=== PATIENT | male | born 1965 | race Two or more races ===

== ENCOUNTER 2020-03-25 20:25 | Emergency (ER) | payer OTHER ==
[~2020-03-25] VITALS: Ht 172.7 cm; Wt 81.6 kg
[2020-03-25] MEDS ORDERED: LORAZEPAM INJ 2 MG/ML VIAL IV ONE (21:00)
[2020-03-25] MEDS ORDERED: IV NS 0.9% 1,000 ML BAG IV ONE (21:00)
--- NOTE | 2020-03-25 21:00 | NUR ---
Note undone in EDM - 03/25/20 at 2301 by [facility] C/O ANXIETY X1 DAY. PT RAN OUT OF [facility] X3 DAYS. REQUESTING [facility] FOR ANXIETY. PT AAOX4, VSS RR EVEN & UNLABORED. DENIES DIZZINESS, N/V AT THIS TIME. PT SEEN & EVAL'D BY DR. FERRERA. MEDICATED FOR ANXIETY. PT KRISTINA WELL. WILL CONT TO MONITOR.
[2020-03-25 21:02] LABS: BASOPHILS # (AUTO) 0.1 /CMM (0.0-0.2); BASOPHILS % (AUTO) 1.1 % (0.0-2.0); EOSINOPHILS % (AUTO) 0.1 % (0.0-6.0); HEMATOCRIT 45 % (39-51); HEMOGLOBIN 14.4 g/dL (13.5-17.5); LYMPHOCYTES # (AUTO) 0.8 /CMM (0.8-4.8); LYMPHOCYTES % (AUTO) 8.6 % (20.0-44.0); MEAN CORPUSCULAR HGB CONC 32 g/dl (31.0-36.0); MEAN CORPUSCULAR VOLUME 84 fL (80-96); MONOCYTES # (AUTO) 0.7 /CMM (0.1-1.30); MONOCYTES % (AUTO) 6.9 % (2.0-12.0); NEUTROPHILS % (AUTO) 83.3 % (43.0-81.0); PLATELET COUNT (AUTO) 207 /CMM (150-450); RED BLOOD CELL COUNT(AUTO) 5.31 MIL/uL (4.5-6.0); WHITE BLOOD COUNT (AUTO) 9.7 K/uL (4.3-11.0)
[2020-03-25] MEDS ORDERED: LORAZEPAM INJ 2 MG/ML VIAL ONE (21:05)
--- NOTE | 2020-03-25 21:15 | NUR ---
BIB EMS C/O ANXIETY X1 DAY. PT RAN OUT OF [facility] X3 DAYS. REQUESTING [facility] FOR ANXIETY. PT AAOX4, VSS RR EVEN & UNLABORED. DENIES DIZZINESS, N/V AT THIS TIME. PT SEEN & EVAL'D BY DR. FERRERA. MEDICATED FOR ANXIETY. PT KRISTINA WELL. WILL CONT TO MONITOR.
[2020-03-25 21:16] LABS: CALCIUM, SERUM 9.1 mg/dL (8.5-10.1); CREATININE 0.9 mg/dL (0.6-1.3)
[2020-03-25 21:18] LABS: POTASSIUM 2.8 mmol/L (3.5-5.1)
[2020-03-25] MEDS ORDERED: POTASSIUM CL. PREMIX PERIPHER. 50 ML ONE (21:28)
[2020-03-25] MEDS ORDERED: POTASSIUM CHLORIDE 20 MEQ TAB.PRT.SR PO ONE ×2 (21:28→21:30)
[2020-03-25] MEDS ORDERED: POTASSIUM CHLORIDE 10 MEQ/50 ML PREMIXED IVPB FOR PERIPHERAL LINE IV ONE (21:30)
[2020-03-25] MEDS ORDERED: LORAZEPAM 1 MG TABLET PO ONE (22:30)
[2020-03-25] MEDS ORDERED: LORAZEPAM 1 MG TABLET ONE (22:39)
[2020-03-25 23:02] VITALS: BP 127/82
--- NOTE | 2020-03-25 23:02 | NUR ---
Patient discharged to home in stable condition. Written and verbal after care instructions given. Patient verbalizes understanding of instruction. IV removed. Catheter intact and site benign. Pressure and 4x4 applied to site. No bleeding noted.
== END 2020-03-25 23:03 | disposition home or self-care (01) ==
LOC: ER 20:29
DX: F41.9 Anxiety disorder, unspecified (principal); E87.6 Hypokalemia
CPT/HCPCS: 36415; 80048; 85025; 96365; 96375; 99284; J2060; J3480

== ENCOUNTER 2020-04-24 14:34 | Emergency (ER) | payer OTHER ==
[~2020-04-24] VITALS: Ht 172.7 cm; Wt 83.9 kg
--- NOTE | 2020-04-24 14:47 | NUR ---
GUERLINE FROM [facility] TO ER BED 6. AAOX4. NOT IN RESP DISTRESS, BREATHING EVEN AND UNLABORED. BROUGHT IN FOR ANXIETY. PER VERBALIZED THAT HE IS HAVING AN ANXIETY ATTACK. HE REPORTS TO BE DRINKING ALCOHOL DAILY WITH LAST DRINK EARLIER THIS MORNING. NOT NOTED TREMORS. AWAITING MD FOR EVAL.
[2020-04-24] MEDS ORDERED: LORAZEPAM INJ 2 MG/ML VIAL IV ONE (16:30)
[2020-04-24] MEDS ORDERED: IV NS 0.9% 1,000 ML IV ONE (16:30)
[2020-04-24] MEDS ORDERED: LORAZEPAM INJ 2 MG/ML VIAL ONE (16:40)
[2020-04-24 17:29] LABS: BASOPHILS # (AUTO) 0.1 /CMM (0.0-0.2); BASOPHILS % (AUTO) 1.2 % (0.0-2.0); EOSINOPHILS % (AUTO) 0.8 % (0.0-6.0); HEMATOCRIT 41 % (39-51); HEMOGLOBIN 13.1 g/dL (13.5-17.5); LYMPHOCYTES # (AUTO) 1.4 /CMM (0.8-4.8); LYMPHOCYTES % (AUTO) 15.5 % (20.0-44.0); MEAN CORPUSCULAR HGB CONC 32 g/dl (31.0-36.0); MEAN CORPUSCULAR VOLUME 81 fL (80-96); MONOCYTES # (AUTO) 0.9 /CMM (0.1-1.30); MONOCYTES % (AUTO) 9.8 % (2.0-12.0); NEUTROPHILS # (AUTO) 6.3 /CMM (1.8-8.9); NEUTROPHILS % (AUTO) 72.7 % (43.0-81.0); PLATELET COUNT (AUTO) 314 /CMM (150-450); RED BLOOD CELL COUNT(AUTO) 5.12 MIL/uL (4.5-6.0); WHITE BLOOD COUNT (AUTO) 8.7 K/uL (4.3-11.0)
[2020-04-24 17:42] LABS: CALCIUM, SERUM 8.5 mg/dL (8.5-10.1); CREATININE 0.7 mg/dL (0.6-1.3); POTASSIUM 3.4 mmol/L (3.5-5.1)
[2020-04-24] MEDS ORDERED: POTASSIUM CHLORIDE 20 MEQ TAB.PRT.SR PO ONE ×2 (18:15→18:30)
--- NOTE | 2020-04-24 18:22 | NUR ---
PT VERBALIZED THAT HE IS FEELING BETTER AND READY TO GO. MD MADE AWARE.
--- NOTE | 2020-04-24 18:22 | NUR ---
Patient discharged to home in stable condition. Written and verbal after care instructions given. Patient verbalizes understanding of instruction.IV removed. Catheter intact and site benign. Pressure and 4x4 applied to site. No bleeding noted. Pt ambulatory with a steady gait
[2020-04-24 18:25] VITALS: BP 154/92
== END 2020-04-24 18:26 | disposition home or self-care (01) ==
LOC: ER 14:39
DX: F41.9 Anxiety disorder, unspecified (principal); F10.10 Alcohol abuse, uncomplicated; E87.6 Hypokalemia; D64.9 Anemia, unspecified; E86.0 Dehydration; I10 Essential (primary) hypertension; Y90.9 Presence of alcohol in blood, level not specified
CPT/HCPCS: 36415; 80048; 83735; 85025; 93005; 96361; 96374; 99284; J2060; J7030

== ENCOUNTER 2020-05-10 08:43 | Inpatient (IN) | payer OTHER ==
[~2020-05-10] VITALS: Ht 172.7 cm; Wt 86.6 kg
--- NOTE | 2020-05-10 08:55 | NUR ---
PT GUERLINE FROM [facility] C/O NAUSEA AND VOMITING. VS CHECKED. AWAITING MD HAIR. IV ACCESS STARTED. BLOOD DRAWN.
[2020-05-10] MEDS ORDERED: ONDANSETRON HCL/PF 4 MG/2 ML VIAL IVP ONE (09:00)
--- NOTE | 2020-05-10 09:15 | NUR ---
PER PT HE IS UNABLE TO PROVIDE URINE SAMPLE AT THE MOMENT. WILL TRY AGAIN LATER
[2020-05-10] MEDS ORDERED: ONDANSETRON HCL/PF 4 MG/2 ML VIAL ONE (09:28)
[2020-05-10] MEDS ORDERED: IV NS 0.9% 1,000 ML BAG IV ONE (09:30)
[2020-05-10 09:31] LABS: BASOPHILS # (AUTO) 0.1 /CMM (0.0-0.2); BASOPHILS % (AUTO) 0.4 % (0.0-2.0); HEMATOCRIT 46 % (39-51); HEMOGLOBIN 14.5 g/dL (13.5-17.5); LYMPHOCYTES # (AUTO) 1.4 /CMM (0.8-4.8); LYMPHOCYTES % (AUTO) 7.7 % (20.0-44.0); MEAN CORPUSCULAR HGB CONC 31 g/dl (31.0-36.0); MEAN CORPUSCULAR VOLUME 81 fL (80-96); MONOCYTES # (AUTO) 1.4 /CMM (0.1-1.30); MONOCYTES % (AUTO) 7.4 % (2.0-12.0); NEUTROPHILS # (AUTO) 15.9 /CMM (1.8-8.9); NEUTROPHILS % (AUTO) 84.5 % (43.0-81.0); PLATELET COUNT (AUTO) 290 /CMM (150-450); RED BLOOD CELL COUNT(AUTO) 5.71 MIL/uL (4.5-6.0); WHITE BLOOD COUNT (AUTO) 18.8 K/uL (4.3-11.0)
[2020-05-10 09:36] LABS: CALCIUM, SERUM 9.5 mg/dL (8.5-10.1); CREATININE 3.2 mg/dL (0.6-1.3)
[2020-05-10 09:40] LABS: POTASSIUM 2.8 mmol/L (3.5-5.1)
--- NOTE | 2020-05-10 09:40 | NUR ---
LAB CALLED POTASIUM IS 2.8
[2020-05-10 09:43] LABS: BILIRUBIN,DIRECT 0.8 mg/dL (0.0-0.2); BILIRUBIN,TOTAL 1.6 mg/dL (0.2-1.0); TOTAL PROTEIN, SERUM 8.9 g/dL (6.4-8.2)
[2020-05-10] MEDS ORDERED: AMLO-212 PO (10:27)
[2020-05-10] MEDS ORDERED: BUSP10TA35 PO (10:27)
[2020-05-10] MEDS ORDERED: ASPI-1420 PO (10:27)
--- NOTE | 2020-05-10 10:57 | NUR ---
DR. MAR MADE AWARE OF PTS CHLORIDE LEVELS 77.
[2020-05-10] MEDS: POTASSIUM CL. PREMIX PERIPHER. 50 ML IV SCH ×6 (11:00→18:27)
--- NOTE | 2020-05-10 11:01 | NUR ---
PT STILL UNABLE TO PROVIDE URINE SAMPLE. PROVIDED PT WITH URINAL. PT IS AWARE OF THE NEED OF URINE SAMPLE
[2020-05-10] MEDS ORDERED: POTASSIUM CL. PREMIX PERIPHER. 300 ML ONE (11:04)
--- NOTE | 2020-05-10 11:10 | NUR ---
COVID SWAB DONE. SENT TO LAB
[2020-05-10] MEDS ORDERED: ONDANSETRON HCL/PF 4 MG/2 ML VIAL IVP PRN (11:30)
[2020-05-10] MEDS ORDERED: Z GUARD REMEDY 2 OZ OINT TP PRN (11:30)
[2020-05-10] MEDS ORDERED: MAG HYDROX/AL HYDROX/SIMETH 30 ML UDC PO PRN (11:30)
[2020-05-10] MEDS ORDERED: MAGNESIUM HYDROXIDE 30 ML UDC PO PRN (11:30)
[2020-05-10] MEDS ORDERED: HYDROCODONE/APAP 5/325MG TABLET PO PRN (11:30)
--- NOTE | 2020-05-10 12:06 | NUR ---
PT RESTING, RR EVEN & UNLABORED. NAD NOTED AT THIS TIME. WILL CONT TO MONITOR.
[2020-05-10 12:18] LABS: MAGNESIUM 2.3 mg/dL (1.8-2.4)
[2020-05-10] MEDS ORDERED: LORAZEPAM INJ 2 MG/ML VIAL IV SCH (13:00)
[2020-05-10] MEDS ORDERED: FOLIC ACID 1 MG TABLET PO SCH (13:00)
[2020-05-10] MEDS ORDERED: THIAMINE HCL 100 MG TABLET PO SCH (13:00)
--- NOTE | 2020-05-10 15:02 | NUR ---
PT ASLEEP, EASILY AWAKEN BY VERBAL STIMULI. DENIES CP, SOB, DIZZINESS, N/V AT THIS TIME. WILL CONT TO MONITOR.
[2020-05-10 16:00] VITALS: BP 114/76
--- NOTE | 2020-05-10 16:00 | NUR ---
RECEIVED PT FROM ER. BEDSIDE REPORT FROM ER NURSE. PT IS ALERT, AWAKE AND ORIENTED X4. ADMITTED IN THE ED FOR NAUSEA AND VOMITING. NOT IN ANY ACUTE DISTRESS. ON ROOM AIR WITH O2 SAT AT 98%. NO SHORTNESS OF BREATH NOTED. ON TELE MONITORING WITH READING OF NSR AND HR IN 80S. HAS UNSTEADY GAIT. INDEPENDENT WITH BED MOBILITY, AND CONTINENT WITH BOWEL AND BLADDER HABITS. IV ON RIGHT AC #18 INTACT AND FLUSHED WELL. ADMISSION CARE RENDERED. BED KEPT IN LOWEST POSITION FOR SAFETY PRECAUTION. CALL LIGHT LEFT WITHIN REACH. WILL CONTINUE TO MONITOR.
[2020-05-10] MEDS: THIAMINE HCL 100 MG TABLET PO SCH (17:04)
[2020-05-10] MEDS: LORAZEPAM INJ 2 MG/ML VIAL IV SCH ×2 (17:04→23:12)
[2020-05-10] MEDS: FOLIC ACID 1 MG TABLET PO SCH (17:04)
[2020-05-10 18:00] VITALS: BP 98/56
--- NOTE | 2020-05-10 18:37 | NUR ---
RN CLOSING NOTES PT REMAINS ALERT AND ORIENTED X4, NOT IN ANY ACUTE DISTRESS. PT WAS ABLE TO HAVE DINNER BUT HAD EPISODE OF NON BLOODY MODERATE AMOUNT OF EMESIS. NO COMPLAIN OF SHORTNESS OF BREATH NOTED. ON TELE MONITORING READS SINUS TACHY, WITH HR IN 100S. ALL DUE MEDS GIVEN ORDERED. PT HAS UNSTEADY GAIT WHEN STANDING. WITH EPISODES OF GETTING UP FROM BED. REMINDED PT TO STAY IN BED AND USE THE CALL LIGHT NEEDED. PT STATED OK. BED KEPT IN LOWEST POSITION FOR SAFETY PRECAUTION. WILL ENDORSE TO NEXT SHIFT FOR SANG.
--- NOTE | 2020-05-10 19:00 | NUR ---
HAND KISS SETTER NOTES NOTED PT STANDING UP ON THE SIDE OF THE BED, WITH RIGHT AC IV #18 DISLODGED. ASSISTED PT BACK TO BED. IV START ON RIGHT HAND WITH 22G, INTACT AND FLUSHED WELL. BED ALARM ON, AND KEPT BED IN LOWEST POSITION FOR SAFETY PRECAUTION. WILL ENDORSE TO NEXT SHIFT.
[2020-05-10 20:00] VITALS: BP_SYST 126; BP_DIAS 82; BP_DIAS 86
--- NOTE | 2020-05-10 20:00 | NUR ---
RN NOTES RECEIVED PT. AWAKE ON BED, CONFUSED, ST ON TELE MONITOR HR-103, NOT IN DISTRESS, NO PAIN NOTED, CALL LIGHT WITHIN REACH, [id number], CONTINUE TO MONITOR
--- NOTE | 2020-05-10 20:45 | NUR ---
RN NOTES PT. IS TRYING TO GET OUT OF BED AND PULLING ALL HIS TUBING, GOT A RESTRAINT ORDER FROM [place], ORDER NOTED AND CARRIED OUT
[2020-05-10] MEDS ORDERED: ZOLPIDEM TARTRATE 5 MG TABLET PO PRN (22:00)
[2020-05-11] VITALS (8 sets, daily range): BP systolic 100–135; BP diastolic 68–85
[2020-05-11] MEDS: LORAZEPAM INJ 2 MG/ML VIAL IV SCH ×6 (02:30→21:23)
[2020-05-11] MEDS: IV NS 0.9% 1,000 ML IV PRN ×3 (03:47→23:28)
--- NOTE | 2020-05-11 05:05 | NUR ---
RN NOTES INFORMED NAVEEN-INVESTIGATIONS DIRECTOR THAT PT'S BOWEL MOVEMENT IS DARK IN COLOR, NAVEEN-INVESTIGATIONS DIRECTOR ORDERED, PROTONIX 40MG IV NOW, STOOL OB, AND STANDING ORDER OF PRBC IF HGB IS <7, ORDER NOTED AND CARRIED OUT
[2020-05-11] MEDS ORDERED: PANTOPRAZOLE 40 MG VIAL IV ONE (05:30)
--- NOTE | 2020-05-11 06:41 | NUR ---
RN NOTES AWAKE, MORNING CARE RENDERED, NOT IN DISTRESS, DENIES PAIN, NO SOB, PT. NEEDS ATTENDED
[2020-05-11 07:18] LABS: BASOPHILS % (AUTO) 0.2 % (0.0-2.0); HEMATOCRIT 33 % (39-51); HEMOGLOBIN 10.3 g/dL (13.5-17.5); LYMPHOCYTES # (AUTO) 1.6 /CMM (0.8-4.8); LYMPHOCYTES % (AUTO) 10.8 % (20.0-44.0); MEAN CORPUSCULAR HGB CONC 31 g/dl (31.0-36.0); MEAN CORPUSCULAR VOLUME 82 fL (80-96); MONOCYTES # (AUTO) 1.7 /CMM (0.1-1.30); MONOCYTES % (AUTO) 11.1 % (2.0-12.0); NEUTROPHILS # (AUTO) 11.8 /CMM (1.8-8.9); NEUTROPHILS % (AUTO) 77.9 % (43.0-81.0); PLATELET COUNT (AUTO) 194 /CMM (150-450); RED BLOOD CELL COUNT(AUTO) 4.06 MIL/uL (4.5-6.0); WHITE BLOOD COUNT (AUTO) 15.1 K/uL (4.3-11.0)
--- NOTE | 2020-05-11 08:00 | NUR ---
RN AM TELE NOTES RECEIVED PT AWAKE AND CONFUSED WITH IVF NS AT 125 ML/HR INFUSING WELL TO LFA#22 INTACT. ASSISTED PT BACK TO BED. IV START ON RIGHT HAND DISLODGED AND REMOVED.PT KEEPS TALKING TO HIMSELF. BED ALARM ON, AND KEPT BED IN LOWEST POSITION FOR SAFETY PRECAUTIONS. WITH MÓNICA SOFT RESTRAINTS. RELEASED RESTRAINT EVERY TWO HRS TO CHECK CIRCULATION. WITH GOOD CIRCULATION. TURNED EVERY TWO HRS. NEEDS ANTICIPATED AND ATTENDED.
[2020-05-11 08:05] LABS: OCCULT BLOOD STOOL NEGATIVE (NEGATIVE)
[2020-05-11 08:37] LABS: ALBUMIN 2.6 g/dL (3.4-5.0); BILIRUBIN,TOTAL 1.9 mg/dL (0.2-1.0); CREATININE 2.3 mg/dL (0.6-1.3); MAGNESIUM 2.3 mg/dL (1.8-2.4); PHOSPHORUS 1.8 mg/dL (2.5-4.9)
[2020-05-11] MEDS: THIAMINE HCL 100 MG TABLET PO SCH (10:08)
[2020-05-11] MEDS: FOLIC ACID 1 MG TABLET PO SCH (10:08)
[2020-05-11] MEDS: ASPIRIN 81 MG TAB.CHEW PO SCH (10:08)
[2020-05-11] MEDS: NICOTINE PATCH (7MG) 7 MG PATCH.TD24 TD SCH (10:08)
[2020-05-11] MEDS: POTASSIUM CL. PREMIX PERIPHER. 50 ML IV SCH ×5 (13:46→19:53)
[2020-05-11] MEDS: ACETAMINOPHEN 325 MG TABLET PO PRN (16:48)
[2020-05-11 17:24] LABS: BILIRUBIN,URINE NEGATIVE (NEGATIVE); BLOOD, URINE SMALL Ery/uL (NEGATIVE); COLOR,URINE YELLOW (YELLOW); LEUKOCYTE ESTERASE ,URINE NEGATIVE (NEGATIVE); NITRITE, URINE NEGATIVE (NEGATIVE); PROTEIN,URINE NEGATIVE (NEGATIVE); UGLUCOSE NEGATIVE (NEGATIVE)
--- NOTE | 2020-05-11 17:30 | NUR ---
transferred pt to room 106 with meds and belongings and gave report to ISABEL Trivedi.With stable V/S.
[2020-05-11 17:53] LABS: BACTERIA,URINE None seen /HPF (None Seen); HYALINE CASTS, URINE RARE /LPF (None Seen); SQUAMOUS EPITHELIAL CELL,UR 0-2 /HPF (None Seen); WBC,URINE 0-2 /HPF (0-3)
[2020-05-11] MEDS ORDERED: K PHOS NEUTRAL 250 MG TABLET PO ONE (18:00)
--- NOTE | 2020-05-11 18:15 | NUR ---
SERVICE DISMANTLER NOTE RECEIVED PATIENT FROM MED SURG, PATIENT WAS BROUGHT ON GURNEY BY 2 RNS, PATIENT WAS AWAKE BUT CONFUSED, R HAND 18G IV, PATENT INTACT CLEAN, HAS 1000ML BAG OF NS RUNNING AT 125ML/HR ORDERED, [id number]+ ORDERED, STEEPLECHASE JOCKEY IS FEEDING PATIENT, ON ROOM AIR SAT 94%, ON TELEMETRY SINUS TACHY, HR 104, ON OSFT RESTRAINT ORDERED, SKIN INTACT. BED IN LOWEST LOCKED POSITION, SAFETY MEASURES IN PLACE, WILL CONTINUE TO MONITOR.
--- NOTE | 2020-05-11 18:23 | NUR ---
Brought pt's pair of black shoes to [facility] and endorsed to ISABEL Trivedi.
[2020-05-11 19:04] LABS: OSMOLALITY,URINE 804 mOS/kg (340-1090)
[2020-05-11 19:07] LABS: URINE SODIUM, RANDOM 8 mmol/l (40-220)
--- NOTE | 2020-05-11 20:00 | NUR ---
RN NOTE LAST BAG OF POTASSIUM GIVEN PER MD ORDERS.
[2020-05-12] VITALS: BP 120/68
[2020-05-12] MEDS: LORAZEPAM INJ 2 MG/ML VIAL IV SCH ×6 (01:22→21:10)
[2020-05-12 04:00] VITALS: BP 136/75
--- NOTE | 2020-05-12 05:30 | NUR ---
RN NOTE RECHECKED O2 SAT 95% ON ROOM AIR HR 86.
[2020-05-12 06:24] LABS: BASOPHILS % (AUTO) 0.2 % (0.0-2.0); EOSINOPHILS % (AUTO) 2.3 % (0.0-6.0); HEMATOCRIT 27 % (39-51); HEMOGLOBIN 8.4 g/dL (13.5-17.5); LYMPHOCYTES # (AUTO) 1.2 /CMM (0.8-4.8); LYMPHOCYTES % (AUTO) 15.5 % (20.0-44.0); MEAN CORPUSCULAR HGB CONC 31 g/dl (31.0-36.0); MEAN CORPUSCULAR VOLUME 82 fL (80-96); MONOCYTES # (AUTO) 0.9 /CMM (0.1-1.30); MONOCYTES % (AUTO) 11.5 % (2.0-12.0); NEUTROPHILS # (AUTO) 5.4 /CMM (1.8-8.9); NEUTROPHILS % (AUTO) 70.5 % (43.0-81.0); PLATELET COUNT (AUTO) 165 /CMM (150-450); RED BLOOD CELL COUNT(AUTO) 3.31 MIL/uL (4.5-6.0); WHITE BLOOD COUNT (AUTO) 7.6 K/uL (4.3-11.0)
--- NOTE | 2020-05-12 07:06 | NUR ---
RN NOTE PT ASLEEP THROUGHOUT MOST OF THE SHIFT. RESPONDS TO LIGHT TOUCH. REMAINS A/O X 1. IVF NS AT 125 ML/HR INFUSING WELL TO RIGHT HAND. BED LOCKED AND IN THE LOWEST POSITION, BED ALARM ON, MÓNICA SOFT RESTRAINTS IN PLACE. RELEASED RESTRAINT EVERY TWO HRS TO CHECK CIRCULATION. SKIN INTACT. PT TURNED EVERY TWO HRS. ENDORSED TO AM RN FOR SANG
[2020-05-12 07:13] LABS: CALCIUM, SERUM 7.6 mg/dL (8.5-10.1); CREATININE 0.7 mg/dL (0.6-1.3); MAGNESIUM 2.6 mg/dL (1.8-2.4)
[2020-05-12 07:20] LABS: POTASSIUM 2.8 mmol/L (3.5-5.1)
[2020-05-12 07:22] LABS: PHOSPHORUS 0.7 mg/dL (2.5-4.9)
[2020-05-12 07:24] LABS: THYROID STIMULATING HORMONE 0.484 uIU/mL (0.358-3.74)
--- NOTE | 2020-05-12 07:30 | NUR ---
RN MS NOTES PATIENT ALERT AND ORIENTED X1 WITH CONFUSION. RESPIRATIONS EVEN AND UNLABORED. NO SOB. ON BILATERAL SOFT RESTRAINTS. PATIENT AT THIS TIME MUMBLES HIS WORDS. PATIENT IS ON EXTERNAL MONITOR, SR OCCASIONAL PVC'S. SKIN IS INTACT, NO S/S OF SKIN BREAKDOWN. WITH RIGHT HAND #18G, INTACT AND PATENT. ON NS @ 125ML/HR. BED LOCKED AND IN LOWEST POSITION. SR UP X2. ALL SAFETY MEASURES IMPLEMENTED. CALL LIGHT WITHIN REACH.
[2020-05-12] MEDS: IV NS 0.9% 1,000 ML IV PRN ×2 (07:35→16:03)
[2020-05-12 08:00] VITALS: BP 123/63
[2020-05-12] MEDS ORDERED: Folic acid 1 MG in IV D5W 50 ML IV SCH (09:00)
[2020-05-12] MEDS: NICOTINE PATCH (7MG) 7 MG PATCH.TD24 TD SCH (09:10)
[2020-05-12] MEDS: ASPIRIN 81 MG TAB.CHEW PO SCH (09:10)
[2020-05-12] MEDS: AMLODIPINE BESYLATE 5 MG TABLET PO SCH (09:11)
[2020-05-12] MEDS: Thiamine 100 MG in IV D5W 50 ML IV SCH (09:11)
[2020-05-12] MEDS: POTASSIUM PHOSPHATE MM 7.5 MMOL in IV NS 0.9% 100 ML IV SCH ×2 (10:25→14:08)
--- NOTE | 2020-05-12 11:52 | NUR ---
Social service consult requested by TRIP RIDER Alistair Ngo for alcohol rehab referral once stable. Patient is a 54 year-old male. The patient presents sleeping on his bed but was easily arousable. Patient was receptive to speaking with this SW. Patient is alert and oriented x1-2 and made appropriate eye-contact throughout interview. Patient presented confused and disoriented however confirmed date of and social security on face sheet. Patient reported living at the current address on face sheet with his brother and sister, however, patient physician reports patient presented to [facility] ED on 05/10 by rescue ambulance from [facility]. SW was unable to continue with this assessment as patient fell asleep mid-interview and was not easily arousable by verbal cues. This SW spoke with ISABEL Mathews. ISABEL Mathews reported that patient is more awake today with periods of confusion and tiredness. Plan: SW to return to complete assessment at a later time. SW remains available for all needs regarding this patient.
--- NOTE | 2020-05-12 13:45 | NUR ---
Per physician report, patient presented to [facility] from [facility]. This SW followed up with [facility] and spoke with Gerber. Gerber reported that the patient is in the [facility] program and Gerber will communicate with [facility] guest services representative at [facility] to inform [facility] guest services representative patient is currently in the hospital. Gerber to follow up with this SW regarding decision of patient's room.
--- NOTE | 2020-05-12 14:01 | NUR ---
This SW received a voicemail message from Gerber from [facility] informing this SW that the patient's room will be held until Friday. Per Gerber's message, SW can follow up with [facility] on Friday with patient discharge date to continue to hold the bed for this patient.
--- NOTE | 2020-05-12 18:48 | NUR ---
RN MS NOTES PATIENT ALERT AND ORIENTED X2 WITH CONFUSION. RESPIRATIONS EVEN AND UNLABORED. NO SOB. PATIENT AT THIS TIME MUMBLES HIS WORDS. SKIN IS INTACT, NO S/S OF SKIN BREAKDOWN. WITH RIGHT HAND #18G, INTACT AND PATENT. ON NS @ 125ML/HR. NO SIGNIFICANT CHANGES OF CONDITION. BED LOCKED AND IN LOWEST POSITION. SR UP X2. ALL SAFETY MEASURES IMPLEMENTED. CALL LIGHT WITHIN REACH. WILL ENDORSE TO NEXT SHIFT.
--- NOTE | 2020-05-12 19:17 | NUR ---
RN NOTES: RECEIVED LYING ON BED, ON SEMI FOWLERS POSITION,ASLEEP, AWAKEN PATIENT UPON ENDORSEMENT ORIENTED TO UNIT AND STAFF, A/OX1-2,WITH PERIODS OF CONFUSION,ON O2 AT 2L/MIN VIA NC SPO2-93%, RIGH HAND CANNULA G#18 PATENT WITH IVF OF NS AT 125 ML/HR,NON LABORED BREATHING, NO SOB NOTED, FALL,SAFETY AND ASPIRATION PRECAUTION OBSERVED. -HIGH RISK FOR FALL, KEPT ON CLOSE VISUAL CHECK ALTERNATE MANAGER PSYCHOLOGY AND RN ROUND FOR FREQUENT MONITORING.
[2020-05-12 20:00] VITALS: BP 119/74
--- NOTE | 2020-05-12 20:42 | NUR ---
RN NOTES: -USES URINAL WITH ASSISTANCE, NO SIGN OF RESTLESSNESS OR COMBATIVE BEHAVIOR NOTED,NO SIGN OF AGGRESSIVE BEHAVIOR, NOT PULLING TUBES AND IV LINE, HE IS QUIET AND CALM, NOT ON RESTRAINT, KEPT ON CLOSE WATCH.
[2020-05-13] MEDS: IV NS 0.9% 1,000 ML IV PRN ×2 (01:27→11:49)
--- NOTE | 2020-05-13 01:27 | NUR ---
RN NOTES: ASLEEP, NO PAIN OR DISCOMFORT, SLEEP WELL. IVF CONSUMED, REPLACED WITH NEW BAG OF NS AT125 ML/HR VIA INFUSION PUMP.
[2020-05-13] MEDS: LORAZEPAM INJ 2 MG/ML VIAL IV SCH ×6 (01:37→20:13)
[2020-05-13 04:00] VITALS: BP 118/75
--- NOTE | 2020-05-13 05:01 | NUR ---
RN NOTES: PATIENT IS IN DEEP SLEEP, NO SIGN OF ALCOHOL WITHDRAWAL, NO RESTLESSNESS, NO AGITATION OR COMBATIVE BEHAVIOR NOTED, PATIENT IS RESTING QUIETLY.CHARGE NURSE NOTIFY, WILL ENDORSED TO CHANGE ATIVAN FROM ROUTINE TO PRN IN THE MORNING.
[2020-05-13 06:53] LABS: BASOPHILS % (AUTO) 0.2 % (0.0-2.0); EOSINOPHILS % (AUTO) 4.8 % (0.0-6.0); HEMATOCRIT 25 % (39-51); HEMOGLOBIN 7.7 g/dL (13.5-17.5); LYMPHOCYTES # (AUTO) 1.5 /CMM (0.8-4.8); MEAN CORPUSCULAR HGB CONC 31 g/dl (31.0-36.0); MEAN CORPUSCULAR VOLUME 81 fL (80-96); MONOCYTES # (AUTO) 1.8 /CMM (0.1-1.30); MONOCYTES % (AUTO) 19.5 % (2.0-12.0); NEUTROPHILS # (AUTO) 5.6 /CMM (1.8-8.9); NEUTROPHILS % (AUTO) 59.5 % (43.0-81.0); PLATELET COUNT (AUTO) 195 /CMM (150-450); RED BLOOD CELL COUNT(AUTO) 3.03 MIL/uL (4.5-6.0); WHITE BLOOD COUNT (AUTO) 9.5 K/uL (4.3-11.0)
--- NOTE | 2020-05-13 06:58 | NUR ---
RN NOTES: -NO NAUSEA OR VOMITING DURING THE ENTIRE SHIFT, NO SIGN OF ALCOHOL WITHDRAWAL,NO BM,URINE OUTPU-1,200, LATEST FDHIJ=415, FOR LABS THIS MORNING, ENDORSED FOR CONTINUITY OF CARE.
[2020-05-13 07:09] LABS: CALCIUM, SERUM 7.4 mg/dL (8.5-10.1); CREATININE 0.5 mg/dL (0.6-1.3); MAGNESIUM 2.4 mg/dL (1.8-2.4); PHOSPHORUS 1.5 mg/dL (2.5-4.9); POTASSIUM 2.9 mmol/L (3.5-5.1)
--- NOTE | 2020-05-13 07:15 | NUR ---
MS RN OPENING NOTES RECEIVED PATIENT IN BED, ASLEEP. PATIENT ON ROOM AIR; BREATHING EVEN AND UNLABORED; NO SOB NOTED. NO S/S OF PAIN SUCH MOANING, GUARDING OR FACIAL GRIMACING. RIGHT HAND IV ACCESS PRESENT AND INTACT INFUSING NS AT 125 MLS/HR. SAFETY PRECAUTIONS IN PLACE; BED IN LOW POSITION AND LOCKED, RAILS UP X2, CALL LIGHT WITHIN REACH. WILL CONTINUE TO MONITOR PATIENT.
[2020-05-13 08:13] VITALS: BP 121/74
[2020-05-13] MEDS: FOLIC ACID 1 MG TABLET PO SCH (08:31)
[2020-05-13] MEDS: AMLODIPINE BESYLATE 5 MG TABLET PO SCH (08:31)
[2020-05-13] MEDS: ASPIRIN 81 MG TAB.CHEW PO SCH (08:31)
[2020-05-13] MEDS: NICOTINE PATCH (7MG) 7 MG PATCH.TD24 TD SCH (08:31)
[2020-05-13] MEDS: Thiamine 100 MG in IV D5W 50 ML IV SCH (08:41)
[2020-05-13] MEDS ORDERED: POTASSIUM CHLORIDE 20 MEQ TAB.PRT.SR PO ONE (09:30)
[2020-05-13] MEDS ORDERED: K PHOS NEUTRAL 250 MG TABLET PO ONE (09:30)
[2020-05-13] MEDS ORDERED: NEUTRA PHOS 1 POWD.PACKET PO ONE (10:00)
[2020-05-13 10:52] LABS: BAND % (MANUAL) 3 % (0.0-5.0); EOSINOPHILS % (MANUAL) 3 % (0-4); LYMPHOCYTES % (MANUAL) 23 % (16-48); MONOCYTES % (MANUAL) 17 % (0-11.0); NEUTROPHILS % (MANUAL) 54 (42-76)
[2020-05-13] MEDS ORDERED: IV NS 0.9% 1,000 ML IV PRN (12:47)
[2020-05-13] MEDS: POTASSIUM CL. PREMIX PERIPHER. 50 ML IV SCH ×4 (12:59→16:06)
--- NOTE | 2020-05-13 18:27 | NUR ---
MS RN CLOSING NOTES PATIENT REMAINS IN BED, AWAKE, A/O X1. PATIENT NEEDS FREQUENT REORIENTATION TO PLACE AND TIME. PATIENT ON ROOM AIR; BREATHING EVEN AND UNLABORED; NO SOB NOTED DURING THE DAY. NO COMPLAINS OF PAIN DURING SHIFT. RIGHT HAND IV ACCESS PRESENT AND INTACT INFUSING NS AT 125 MLS/HR. POTASSIUM REPLACED WITH 4 BAGS OF K. ALL NEEDS ATTENDED TO THROUGHOUT THE DAY. SAFETY PRECAUTIONS IN PLACE; BED IN LOW POSITION AND LOCKED, RAILS UP X2, CALL LIGHT WITHIN REACH. WILL ENDORSE TO PATIENT SUPPORT ASSISTANT NURSE.
[2020-05-13 20:00] VITALS: BP 128/74
--- NOTE | 2020-05-13 20:00 | NUR ---
MS RN OPENING NOTES RECEIVED PATIENT IN BED, AWAKE, COOPERATIVE, A/0 X 1-2 CONFUSED, O2 @ 2LPM VIA NASAL CANNULA, NO SIGNS OF RESPIRATORY DISTRESS AT THIS MOMENT, RIGHT HAND #18 NS @40ML/HR, NO COMPLAINTS OF PAIN, SIDE RAILS UP X2, WILL CONTINUE TO MONITOR.
[2020-05-14] MEDS: LORAZEPAM INJ 2 MG/ML VIAL IV SCH ×3 (00:13→08:53)
--- NOTE | 2020-05-14 06:32 | NUR ---
MS RN CLOSING NOTES ENDORSED PATIENT TO AM SHIFT NURSE IN BED, AWAKE, A/O X 1-2, CONFUSED, FREQUENT RE-ORIENTATION NEED, NO SIGNS OF RESPIRATORY DISTRESS WHOLE SHIFT, DUE MEDS GIVEN, ASSISTED PATIENT TO BATHROOM, INSTRUCTED PATIENT TO REMAIN IN BED FOR SAFETY. SIDE RAILS UP FOR SAFETY.
[2020-05-14 06:39] LABS: BASOPHILS % (AUTO) 0.3 % (0.0-2.0); HEMATOCRIT 26 % (39-51); HEMOGLOBIN 8.3 g/dL (13.5-17.5); LYMPHOCYTES # (AUTO) 3.2 /CMM (0.8-4.8); LYMPHOCYTES % (AUTO) 20.2 % (20.0-44.0); MEAN CORPUSCULAR HGB CONC 32 g/dl (31.0-36.0); MEAN CORPUSCULAR VOLUME 81 fL (80-96); MONOCYTES # (AUTO) 3.6 /CMM (0.1-1.30); MONOCYTES % (AUTO) 22.4 % (2.0-12.0); NEUTROPHILS # (AUTO) 8.5 /CMM (1.8-8.9); NEUTROPHILS % (AUTO) 53.1 % (43.0-81.0); PLATELET COUNT (AUTO) 271 /CMM (150-450); RED BLOOD CELL COUNT(AUTO) 3.25 MIL/uL (4.5-6.0)
[2020-05-14 07:01] LABS: ALBUMIN 2.6 g/dL (3.4-5.0); BILIRUBIN,TOTAL 0.9 mg/dL (0.2-1.0); CALCIUM, SERUM 7.9 mg/dL (8.5-10.1); CREATININE 0.7 mg/dL (0.6-1.3); PHOSPHORUS 1.2 mg/dL (2.5-4.9); POTASSIUM 3.1 mmol/L (3.5-5.1); TOTAL PROTEIN, SERUM 6.1 g/dL (6.4-8.2)
[2020-05-14 08:00] VITALS: BP 112/67
[2020-05-14 08:52] VITALS: BP 112/67
[2020-05-14] MEDS: NICOTINE PATCH (7MG) 7 MG PATCH.TD24 TD SCH (08:52)
[2020-05-14] MEDS: ASPIRIN 81 MG TAB.CHEW PO SCH (08:52)
[2020-05-14] MEDS: FOLIC ACID 1 MG TABLET PO SCH (08:52)
[2020-05-14] MEDS: ACETAMINOPHEN 325 MG TABLET PO PRN (08:52)
[2020-05-14] MEDS: AMLODIPINE BESYLATE 5 MG TABLET PO SCH (08:52)
[2020-05-14] MEDS ORDERED: THIAMINE HCL 100 MG TABLET PO SCH (09:00)
[2020-05-14] MEDS ORDERED: POTASSIUM CHLORIDE 20 MEQ TAB.PRT.SR PO SCH (10:00)
[2020-05-14] MEDS ORDERED: NEUTRA PHOS 1 POWD.PACKET PO ONE (10:00)
[2020-05-14] MEDS ORDERED: POTASSIUM CHLORIDE 20 MEQ TAB.PRT.SR PO ONE (10:00)
[2020-05-14 12:08] LABS: BAND % (MANUAL) 3 % (0.0-5.0); EOSINOPHILS % (MANUAL) 4 % (0-4); LYMPHOCYTES % (MANUAL) 19 % (16-48); MONOCYTES % (MANUAL) 20 % (0-11.0); NEUTROPHILS % (MANUAL) 53 (42-76); REACTIVE LYMPHOCYTES 1 % (0-0)
--- NOTE | 2020-05-14 12:40 | NUR ---
RN CLOSING NOTE PATIENT DISCHARGED. PAPERWORK COMPLETED AND SIGNED. TAXI VOUCHER OBTAINED FROM NURSING STACKER DRIVER. IV AND ID BAND REMOVED.
--- NOTE | 2020-05-16 15:30 | NUR ---
ASTER received a call from patient's mother Ria . Ria wanted more information regarding the patient discharge and referrals that were given. ASTER informed Ria that the patient was discharged back to [facility]. Ria became emotional as she wanted the patient to be referred to an alcohol facility. ASTER informed Ria that the patient has to make that decision for himself and patient did not want that. Ria thanked this SW for the providing information.
== END 2020-05-14 12:36 | disposition home or self-care (01) | DRG 422 ==
LOC: ER 08:48 → TELE2 12:13 → TELE1 05-11 17:56 → TELE-TD 05-11 20:32 → TELE1 05-11 20:42 → MEDSG1 05-12 09:36
PROVIDERS: ADMIT Nurse Practitioner Acute Care; ATTEND Nurse Practitioner Acute Care
DX: E87.6 Hypokalemia (principal); E86.0 Dehydration; I21.A1 Myocardial infarction type 2; I25.10 Atherosclerotic heart disease of native coronary artery without angina pectoris; N17.0 Acute kidney failure with tubular necrosis; F41.9 Anxiety disorder, unspecified; Z79.899 Other long term (current) drug therapy; Z79.82 Long term (current) use of aspirin; K21.00 Gastro-esophageal reflux disease with esophagitis, without bleeding; K57.90 Diverticulosis of intestine, part unspecified, without perforation or abscess without bleeding; F10.231 Alcohol dependence with withdrawal delirium; F17.200 Nicotine dependence, unspecified, uncomplicated; D72.829 Elevated white blood cell count, unspecified; Z98.61 Coronary angioplasty status; K44.9 Diaphragmatic hernia without obstruction or gangrene; G92 Toxic encephalopathy; E51.2 Wernicke's encephalopathy; E83.39 Other disorders of phosphorus metabolism; E86.1 Hypovolemia; E27.40 Unspecified adrenocortical insufficiency; Y90.9 Presence of alcohol in blood, level not specified; E87.1 Hypo-osmolality and hyponatremia; I25.2 Old myocardial infarction; I34.0 Nonrheumatic mitral (valve) insufficiency
CPT/HCPCS: 36415; 70450-TC; 71045-TC; 80048-TC; 80053-TC; 80061-TC; 80076-TC; 81000-TC; 82140-TC; 82272-TC; 82550-TC; 83690-TC; 83735-TC; 83935-TC; 84100-TC; 84300-TC; 84443-TC; 84484-TC; 84550-TC; 85025-TC; 87081-TC; 93307-TC; 97116-TC; 97530-TC; C9113; G0378; J2060; J2405; J3411; J3480; J3490; J7030; J7060; U0003